=== PATIENT | female | born 1975 | race Caucasian/White ===

== ENCOUNTER 2017-06-22 14:13 | Outpatient (CLI) | payer OTHER ==
--- NOTE | 2017-06-22 15:21 | RAD ---
LEFT SHOULDER THREE VIEWS: History: Left shoulder pain. FINDINGS/IMPRESSION: No fracture, dislocation, or bony destruction identified. POS: DURAN
== END 2017-06-22 14:14 | disposition home or self-care (01) ==
LOC: RAD-FRANK 14:13
PROVIDERS: ATTEND Nurse Practitioner Family
DX: M25.512 Pain in left shoulder (principal)

== ENCOUNTER 2018-08-22 19:18 | Emergency (ER) | payer OTHER ==
[~2018-08-22 19:18] MED LIST: ISOVUE-370 76%-LOCM 1 ML ONE
[2018-08-22 20:28] LABS: Bilirubin Negative (Negative); Blood, Urine Negative (Negative); Clarity CLOUDY (Clear); Glucose, Urine (Dipstick) Negative (Negative); Leukocyte Negative (Negative); Nitrite Negative (Negative); Protein, Urine (Dipstick) Negative (Neg-Trace)
[2018-08-22 20:30] LABS: Pregnancy Test - Urine (BHCG) Negative (Negative); Pregu Control Background? CLEAR/WHITE (CLR/WHITE); Pregu Control Bar Appear? YES (CONTROL BAR); Specific Gravity 1.026 (1.002-1.036)
[2018-08-22] MEDS ORDERED: Morphine 4 MG/ML VIAL ONE (20:32)
--- NOTE | 2018-08-22 20:41 | RAD ---
EXAM: Single view of the chest HISTORY: Chest pain COMPARISON: None FINDINGS: Single view of the chest shows a normal sized cardiomediastinal silhouette. There is no greg dence of consolidation, mass, or pleural effusion. The bones are unremarkable. IMPRESSION: No evidence of acute cardiopulmonary disease
--- NOTE | 2018-08-22 21:06 | CT ---
CT Abdomen Pelvis W Con: 08/22/2018 12:00 AM CLINICAL INFORMATION: Left-sided abdominal pain for 3 days COMPARISON: None. TECHNIQUE: Multiple contiguous axial images were obtained and a CT of the abdomen and pelvis with IV contrast. C oronal reformats were performed. FINDINGS: Lower Chest: within normal limits. Abdomen: Liver: within normal limits. Bile Ducts: Normal caliber. Gallbladder: No calcified gallstones. Normal caliber wall. Pancreas: within normal limits. Spleen: within normal limits. Adrenals: within normal limits. Kidneys: within normal limits. Pelvis: Reproductive Organs: No pelvic masses. Ureters: within normal limits. Bladder: within normal limits. Peritoneum: No ascites or free air, no fluid collection. Bowel: Normal caliber. Normal appendix. Mesentery and Retroperitoneum: No enlarged mesenteric or retroperitoneal lymph nodes. Vessels: Normal. Abdominal Wall: within normal limits. Bones: Within normal limits IMPRESSION: No evidence of acute intraabdominal\pelvic abnormality.
[2018-08-22 21:14] LABS: #Eosinphils 0.1 thou/uL (0.0-0.7); #Lymphocytes 1.8 thou/uL (1.20-3.40); #Monocytes 0.5 thou/uL (0.11-0.59); #Neutrophils 5.1 thou/uL (1.40-6.50); %Basophils 0.3 % (0.0-1.0); %Eosinophils 1.3 % (0.0-10.0); %Lymphocytes 23.9 % (21.0-51.0); %Monocytes 6.6 % (0.0-10.0); %Neutrophils 67.9 % (42.0-75.0); Hemoglobin 14.1 g/dL (12.0-16.0); Mean Corpuscular Hemoglobin 30.2 pg (27.0-31.0); Mean Corpuscular Volume 88.8 fL (78.0-98.0); Mean Platelet Volume 8.3 fL (7.4-10.4); Platelet Count 214 thou/uL (130-400); RBC Distribution Width 12.9 % (11.5-14.5); Red Blood Cell (RBC) Count 4.66 mill/uL (4.20-5.40); White Blood Cell (WBC) Count 7.6 thou/uL (4.8-10.8)
[2018-08-22 21:34] LABS: ALT (SGPT) 23 U/L (8-55); AST (SGOT) 21 U/L (5-34); Albumin 4.3 g/dL (3.5-5.0); Alkaline Phosphatase 59 U/L (40-150); Anion Gap 15 mmol/L (10-20); BUN (Urea Nitrogen) 16 mg/dL (7.0-18.7); Bilirubin, Total 2.2 mg/dL (0.2-1.2); Calc. Creatinine Clearance 0 mL/min (70-130); Calcium 9.4 mg/dL (7.8-10.44); Carbon Dioxide 23 mmol/L (22-29); Chloride 102 mmol/L (98-107); Estimated GFR-MDRD 55; Globulin 3.3 g/dL (2.4-3.5); Glucose 91 mg/dL (70-105); Lipase 46 U/L (8-78); Potassium 3.5 mmol/L (3.5-5.1); Protein, Total 7.6 g/dL (6.0-8.3); Sodium 136 mmol/L (136-145)
[2018-08-22] MEDS ORDERED: Ketorolac Tromethamine 30 MG/ML VIAL ONE (21:43)
--- NOTE | 2018-08-22 22:53 | ULT ---
US Gallbladder RUQ: 08/22/2018 9:43 PM CLINICAL HISTORY: Abdominal pain and elevated bilirubin. STUDY: Limited right upper quadrant ultrasound of abdomen. COMPARISON: None. FINDINGS: Liver: Size: Normal. Echogenicity: Hyperechoic consistent with hepatic steatosis. Contour: Smooth. Mass: None. Bile ducts: No intrahepatic or extrahepatic biliary dilatation. Common bile duct measures 6 mm. Gallbladder: Normal. Pancreas: Head, body, and tail appear normal. Right kidney: No pelvicalyceal dilatation. Right kidney measuring 10.9 cm in length. IMPRESSION: Fatty liver
== END 2018-08-22 23:30 | disposition home or self-care (01) ==
LOC: ERS 19:18
DX: R10.12 Left upper quadrant pain (principal); R10.32 Left lower quadrant pain; I10 Essential (primary) hypertension; F32.9 Major depressive disorder, single episode, unspecified; Z79.899 Other long term (current) drug therapy
CPT/HCPCS: 71045; 74177; 76705; 80053; 81003; 81025; 83690; 84484; 85025; 96374; 96375; J1885; J2270; Q9966

== ENCOUNTER 2018-08-29 08:51 | Outpatient (CLI) | payer OTHER ==
--- NOTE | 2018-08-29 09:49 | ULT ---
Exam: Transabdominal pelvic ultrasound HISTORY: Left-sided abdominal pain. TECHNIQUE: Transabdominal imaging of the pelvis is performed. Ovaries are interrogated with grayscale , color flow, Doppler imaging and spectral waveform analysis FINDINGS: Uterus is identified measuring 9.6 x 4.8 x 6.0 cm. Heterogeneous myometrium. Limited evaluation of th e endometrium. Visualized endometrium appears to be 2 cm in thickness. Left ovary has a normal echotexture measuring 2.0 x 1.7 x 2.6 cm. Right ovary is normal echotexture measuring 1.5 x 2.0 x 3.0 cm There is no free fluid Ovarian Doppler: Vascular flow to the right and left ovary IMPRESSION: Heterogeneous uterine myometrium without discrete mass. Pelvic MRI may be beneficial to f urther interrogate the myometrium.
== END 2018-08-29 08:52 | disposition home or self-care (01) ==
LOC: SCSULT 08:51
PROVIDERS: ATTEND Nurse Practitioner Family
DX: R10.9 Unspecified abdominal pain (principal); R93.5 Abnormal findings on diagnostic imaging of other abdominal regions, including retroperitoneum
CPT/HCPCS: 76856; 93976

== ENCOUNTER 2018-09-01 17:41 | Emergency (ER) | payer OTHER ==
[2018-09-01 18:58] LABS: Bacteria/HPF None Seen HPF (None Seen); Bilirubin Negative (Negative); Blood, Urine 1+ (Negative); Calcium Oxalate Crystals Rare HPF (None Seen); Clarity Clear (Clear); Glucose, Urine (Dipstick) Normal (Negative); Leukocyte Negative Leu/uL (Negative); Nitrite Negative (Negative); Protein, Urine (Dipstick) Negative (Neg-Trace); RBC/HPF 0-3 HPF (0-3); Squamous Epithelial 0-3 HPF (0-3); Urobilinogen Normal mg/dL (Less than 2); WBC/HPF 0-3 HPF (0-3)
[2018-09-01] MEDS ORDERED: Ondansetron ODT 4 MG TAB ONE (19:13)
[2018-09-01] MEDS ORDERED: HYDROcodone/Acetaminophen 5/325 mg Tablet ONE (19:13)
== END 2018-09-01 19:20 | disposition home or self-care (01) ==
LOC: ERS 17:41
DX: R10.32 Left lower quadrant pain (principal); R11.0 Nausea; I10 Essential (primary) hypertension; F41.9 Anxiety disorder, unspecified; F32.9 Major depressive disorder, single episode, unspecified; Z79.899 Other long term (current) drug therapy
CPT/HCPCS: 81003; 81015; 99284; Q0162

== ENCOUNTER 2018-11-18 11:26 | Outpatient (CLI) | payer OTHER ==
--- NOTE | 2018-11-20 17:24 | EKG ---
Test Reason : Blood Pressure : / mmHG Vent. Rate : 081 BPM Atrial Rate : 081 BPM P-R Int : 138 ms QRS Dur : 080 ms QT Int : 388 ms P-R-T Axes : 051 030 046 degrees QTc Int : 450 ms Normal sinus rhythm Normal ECG No previous ECGs available Confirmed by JEN MCGUIRE (2) on 11/20/2018 5:23:54 PM Referred By: LUKE Confirmed By:JEN MCGUIRE
== END 2018-11-18 11:27 | disposition home or self-care (01) ==
LOC: LABBT 11:26
PROVIDERS: ATTEND Student in an Organized Health Care Education/Training Program
DX: Z01.818 Encounter for other preprocedural examination (principal); D21.9 Benign neoplasm of connective and other soft tissue, unspecified; R10.2 Pelvic and perineal pain
CPT/HCPCS: 93005; 93010

== ENCOUNTER 2018-11-21 05:52 | Day surgery (SDC) | payer OTHER ==
[2018-11-18 11:43] VITALS: BMI 32.4
[2018-11-18 12:35] LABS: Hemoglobin 14.3 g/dL (12.0-16.0); Mean Corpuscular HGB CONC 35.2 g/dL (32.0-36.0); Mean Corpuscular Hemoglobin 30.7 pg (27.0-31.0); Mean Corpuscular Volume 87.1 fL (78.0-98.0); Platelet Count 247 thou/uL (130-400); RBC Distribution Width 12.8 % (11.5-14.5); Red Blood Cell (RBC) Count 4.65 mill/uL (4.20-5.40); White Blood Cell (WBC) Count 5.5 thou/uL (4.8-10.8)
[2018-11-18 12:57] LABS: Anion Gap 13 mmol/L (10-20); BUN (Urea Nitrogen) 10 mg/dL (7.0-18.7); Calc. Creatinine Clearance 0 mL/min (70-130); Calcium 9.1 mg/dL (7.8-10.44); Carbon Dioxide 22 mmol/L (22-29); Chloride 104 mmol/L (98-107); Estimated GFR-MDRD 47; Glucose 131 mg/dL (70-105); Potassium 3.6 mmol/L (3.5-5.1); Sodium 135 mmol/L (136-145)
[2018-11-18 12:58] LABS: BHCG - Serum Negative (NEGATIVE); Pregs Control Background? CLEAR/WHITE (CLR/WHITE); Pregs Control Bar Appear? YES (CONTROL BAR)
[2018-11-21] MEDS ORDERED: Famotidine/PF 20 mg/2ml Vial ONE (06:24)
[2018-11-21] MEDS ORDERED: CeleCOXIB 100 MG CAP ONE (06:24)
[2018-11-21] MEDS ORDERED: Levofloxacin 500 mg/D5W 100 ml Premix Bag ONE (06:24)
[2018-11-21] MEDS ORDERED: Gabapentin 300 MG CAP ONE (06:24)
[2018-11-21] MEDS ORDERED: Clindamycin/D5W 900 mg/50 ml Premix Bag ONE (06:24)
[2018-11-21] MEDS ORDERED: Methylene Blue 50 MG/10 ML AMPUL ONE (06:35)
[2018-11-21] MEDS ORDERED: Bupivacaine HCl 0.5%/Epinephrine 1:200,000/PF 30 ml Vial ONE (06:35)
[2018-11-21] MEDS ORDERED: Midazolam HCl 2 mg/2 ml Vial ONE ×2 (06:48→06:49)
[2018-11-21] MEDS ORDERED: Fentanyl 250 MCG/5 ML VIAL ONE (06:48)
[2018-11-21] MEDS ORDERED: Ondansetron HCl/PF 4 MG/2 ML Vial IVP PRN (09:27)
[2018-11-21] MEDS ORDERED: Promethazine HCl 25 MG/ML VIAL SLOW IVP PRN (09:27)
[2018-11-21] MEDS ORDERED: Promethazine HCl 25 MG/ML VIAL IM PRN ×2 (09:27→09:40)
[2018-11-21] MEDS ORDERED: Morphine 4 MG/ML VIAL SLOW IVP PRN (09:40)
[2018-11-21] MEDS ORDERED: Ondansetron PF 4 MG/2 ML Vial IVP PRN (09:40)
[2018-11-21] MEDS ORDERED: diphenhydrAMINE 25 MG CAP PO PRN (09:40)
[2018-11-21] MEDS ORDERED: Bisacodyl 10 MG SUPP PR PRN (09:40)
[2018-11-21] MEDS ORDERED: Zolpidem Tartrate 5 MG TAB PO PRN (09:40)
[2018-11-21] MEDS ORDERED: HYDROcodone/Acetaminophen 5/325 mg Tablet PO PRN (09:40)
[2018-11-21] MEDS ORDERED: Fentanyl 100 MCG/2 ML VIAL ONE ×2 (10:47→11:24)
[2018-11-21] MEDS ORDERED: Ketorolac Tromethamine 30 MG/ML VIAL IVP SCH (12:00)
[2018-11-21] MEDS ORDERED: Lidocaine 1% PF 5 ML VIAL ONE (14:39)
[2018-11-21] MEDS ORDERED: Rocuronium Bromide 10 MG/ML (10ML VIAL) ONE (14:39)
[2018-11-21] MEDS ORDERED: Dexamethasone 20 MG/5 ML VIAL ONE (14:39)
[2018-11-21] MEDS ORDERED: Ketorolac Tromethamine 30 MG/ML VIAL ONE (14:39)
[2018-11-21] MEDS ORDERED: ePHEDrine 50 MG/ML VIAL ONE (14:39)
[2018-11-21] MEDS ORDERED: Ondansetron PF 4 MG/2 ML Vial ONE (14:39)
[2018-11-21] MEDS ORDERED: PROPOFOL 200 MG/20 ML VIAL ONE (14:39)
[2018-11-21] MEDS ORDERED: Glycopyrrolate 0.2 MG/ML 5 ML SYRINGE ONE (14:39)
[2018-11-21] MEDS ORDERED: diphenhydrAMINE 50 MG/ML VIAL ONE (14:39)
[2018-11-21] MEDS: Ketorolac Tromethamine 30 MG/ML VIAL IVP SCH ×2 (15:43→22:16)
[2018-11-21] MEDS: Simethicone Chewable 80 MG TAB PO PRN (19:12)
[2018-11-21] MEDS: HYDROcodone/Acetaminophen 5/325 mg Tablet PO PRN (19:12)
[2018-11-21] MEDS: Sodium Chloride 0.9% 1,000 ML IV SCH (19:13)
[2018-11-22] MEDS: Sodium Chloride 0.9% 1,000 ML IV SCH ×2 (03:22→12:39)
[2018-11-22] MEDS: Ketorolac Tromethamine 30 MG/ML VIAL IVP SCH ×2 (04:00→12:38)
[2018-11-22] MEDS ORDERED: Ibuprofen 800 MG TAB PO SCH (06:00)
[2018-11-22] MEDS: Ibuprofen 600 MG TAB PO SCH ×2 (06:27→14:11)
[2018-11-22 06:56] LABS: Hemoglobin 11.8 g/dL (12.0-16.0); Mean Corpuscular HGB CONC 34.6 g/dL (32.0-36.0); Mean Corpuscular Hemoglobin 30.4 pg (27.0-31.0); Mean Corpuscular Volume 87.9 fL (78.0-98.0); Mean Platelet Volume 8.1 fL (7.4-10.4); Platelet Count 200 thou/uL (130-400); RBC Distribution Width 12.8 % (11.5-14.5); Red Blood Cell (RBC) Count 3.89 mill/uL (4.20-5.40); White Blood Cell (WBC) Count 7.7 thou/uL (4.8-10.8)
[2018-11-22 07:16] LABS: Anion Gap 10 mmol/L (10-20); BUN (Urea Nitrogen) 11 mg/dL (7.0-18.7); Calc. Creatinine Clearance 79 mL/min (70-130); Calcium 8.3 mg/dL (7.8-10.44); Carbon Dioxide 22 mmol/L (22-29); Chloride 107 mmol/L (98-107); Estimated GFR-MDRD 49; Glucose 116 mg/dL (70-105); Potassium 4.2 mmol/L (3.5-5.1); Sodium 135 mmol/L (136-145)
[2018-11-22] MEDS ORDERED: FLUoxetine HCl 20 MG CAP PO SCH (09:00)
[2018-11-22] MEDS ORDERED: Loratadine 10 MG TAB PO SCH (09:00)
[2018-11-22] MEDS ORDERED: Lisinopril 20 MG TAB PO SCH (09:00)
[2018-11-22] MEDS: Simethicone Chewable 80 MG TAB PO PRN (09:24)
[2018-11-22] MEDS: HYDROcodone/Acetaminophen 5/325 mg Tablet PO PRN ×2 (09:25→14:11)
--- NOTE | 2018-11-22 10:11 | PDOC.EVN ---
Event Note - Event Note Event Note: Pt seen and evaluated POD1 s/p ERIKLH BS with bladder serosa repair. PT is doing well this am. Pain is controlled. She denies any vaginal bleeding. She is eating and drinking well. She has no leg pain or swelling. Her Richards was just removed. She is about to start ambulating and attempt to void. She has no leg pain or swelling. NO incisional pain or concerns. PT VSS, afebrile. PT is resting comfortable in bed. Normal respiratory effort. Abdomen is soft, without distention. Incisions are intact. LE have SCDs in place. She has no pain or swelling noted. She is neurologically intact. H/H stable at 11.8/34.2 and creatinine improved at 1.21. Pathology is pending at this time. PT s/p RATLH BS c bladder serosa repair. Pt is doing well and pain controlled. Pt will ambulate with plan to d/c as soon as she is able to void. She will follow up in the office in 2 week. Prescriptions have already been sent to pharmacy. Discharge planning and instructions discussed with patient. Hx of HTN- her BP is well controlled at this time and she will resume home meds.
[2018-11-22 11:21] VITALS: BP 113/62; TEMP 98.2
--- NOTE | 2018-11-23 12:08 | OP ---
DATE OF PROCEDURE: 11/21/2018 PREOPERATIVE DIAGNOSES: 1. Fibroids. 2. Pelvic pain. POSTOPERATIVE DIAGNOSES: 1. Fibroids. 2. Pelvic pain. PROCEDURES PERFORMED: Robotic assisted total laparoscopic hysterectomy, bilateral salpingectomy, repair of bladder serosal defect. ANESTHESIA: General endotracheal. BAND SAWYER SURGEON: Priscilla Myers. ESTIMATED BLOOD LOSS: 50 mL. IVF: 1500 mL crystalloid. URINE OUTPUT: 100 mL concentrated urine. COMPLICATIONS: None. DRAINS: Richards catheter. PATHOLOGY: Uterus, cervix, bilateral fallopian tubes. FINDINGS: On exam under anesthesia, an 11 week size uterus, mobile was present, sounded to 11 cm. The cervix is normal-appearing on intraabdominal survey. The uterus was globally enlarged and boggy consistent with adenomyosis. The ovaries were normal bilaterally. There was a small follicular cyst on the right ovary with clear fluid. The fallopian tubes had prior tubal ligation and were within normal limits. Ureters were visible transperitoneally throughout the case and there were dense adhesions of the bladder to the lower uterine segment from the patient's previous and there was no inadvertent bladder injury on back filling of the bladder. There was a small serosal defect in the dome of the bladder that was repaired with a single layer of Vicryl. OPERATIVE TECHNIQUE: The patient was taken to the operating room, where general anesthesia was obtained without difficulty. The patient was prepped and draped in a sterile fashion in a dorsal lithotomy position. A Richards catheter was placed in the bladder. A speculum was placed in the vagina. The anterior lip of the cervix was grasped with a single-tooth tenaculum and the uterus then sounded to 11 cm. The ALANIS manipulator was assembled with a 10 cm tip and a 4 cm colpotomizer ring. The cervix was dilated and the ALANIS was inserted into the uterus. The instruments were removed. Balloons were inflated. Legs were placed in low lithotomy. Attention was turned to the abdomen. The superior aspect of the umbilicus was infiltrated with 0.5% Marcaine with epinephrine. A vertical 12 mm skin incision was made and the Veress needle was passed to the abdomen, noting an opening pressure of 0 mmHg. Pneumoperitoneum was obtained. The Veress needle was removed. The 12 mm trocar was advanced into the abdomen and confirmed placement with robotic camera. The steep Trendelenburg was obtained. The right and left lower quadrant 8 mm robotic trocars were placed under direct visualization after infiltrating with anesthetic and making a horizontal skin incision. A right upper quadrant 11 mm optometric assistant port was also placed under direct visualization after infiltrating with anesthetic and making a skin incision. The robot was then docked. The right robotic arm contained monopolar scissors and left robotic arm contained a fenestrated bipolar. The surgeon console took control. The left fallopian tube was grasped and elevated and the mesosalpinx was cauterized with the bipolar and incised with the scissors. Once the fallopian tube was transected, this was removed out of the abdomen. The utero-ovarian ligament was cauterized multiple times with the bipolar and transected and the mesovarium was incised down to the round ligament that was cauterized and transected in the midportion. The posterior leaf of the broad ligament was dropped down to the level of the uterosacral. The retroperitoneum was dissected off the uterine pedicle and the ureter was noted at that time. The anterior leaf of broad ligament was dropped down to the level of the bladder flap. Clear peritoneal windows were incised. However, the bladder was densely adherent to the lower uterine segment above the colpotomizer ring. The right fallopian tube was then grasped and elevated and the mesosalpinx was cauterized and incised and the fallopian tube was removed out of the abdomen. The utero-ovarian was cauterized with the bipolar and incised with the scissors and taken down to the round ligament that was cauterized in the midportion and incised with the scissors. The posterior leaf of the broad ligament was dropped down to the level of the uterosacral and skeletonization of the vascular uterine pedicle was performed. The anterior leaf of the broad ligament was also incised ensuring a clear window by tenting with the fenestrated. The bladder was attempted to be dissected off the lower segment with a pushing and spreading technique with the fenestrated. This did allow some of the bladder to come down off the lower segment. Then, the bladder was approached laterally to find a window along the cervix where the cervix was free of adhesion and this was successful on the first side and able to allow additional lateral bladder adhesion to be freed up layering out very carefully ensuring no bladder mucosa and clear windows and then incising. During this portion, irrigation was being performed and suction to allow for visualization as the adhesions were oozy. Back filling of the bladder was performed to note the limitations of the bladder that appeared to be close to the lower segment. The left bladder was also approached laterally and the window was identified, which allowed freeing up of the lateral bladder adhesions by layering it out and the bladder was backfilled again once the bladder had been freed up a little bit more and it was noted that the majority of what remained attached to the uterus was scar. This was incised with the scissors on cautery. Once the bladder had been completely freed out, the pubocervical fascia was scored and the adventitia was dissected down below the level of the colpotomizer ring. The bladder was backfilled once again and at that time, it was noted to possibly have about 1.5 cm defect in the serosa of the bladder. However, there was no extravasation of saline and therefore, no bladder mucosal injury. The uterine vessels were cauterized multiple times bilaterally and incised. The colpotomy was performed and the uterus was then placed into the vagina. The vaginal cuff was irrigated and cauterized achieving hemostasis and the ureters were again noted bilaterally through the peritoneum vermiculating. The scissors were traded out for the needle route delivery service driver and the vaginal cuff was closed with Stratafix 2-0 barbed suture in a running fashion and run back for a second layer with excellent reapproximation. A 3-0 Vicryl was then passed into the abdomen and this was used to close the serosal defect in a running fashion. The needle was removed out of the abdomen. Irrigation was again performed of the pelvis copiously. Low pressure check was performed. Hemostasis was noted. Back filling of the bladder one additional time revealed no other defects or extravasation of saline. All instruments were removed out of the abdomen. Pneumoperitoneum was released. The robot was undocked. The fascia of the camera port was closed with 0 Vicryl in a [id number] fashion. The skin was closed with 4-0 Monocryl in subcuticular fashion. Dermabond was applied. All instruments removed out of the vagina. The vaginal cuff was checked and noted to be hemostatic with excellent closure. The patient tolerated the procedure well. Sponge, lap, needle counts correct x2. The patient was taken to recovery room in stable condition. The patient received Levaquin and clindamycin for preoperative prophylaxis. Job ID: [id number]
== END 2018-11-22 14:35 | disposition home or self-care (01) ==
LOC: SDC 05:52 → 3SE 12:04 → SDC 11-22 14:35
PROVIDERS: ATTEND Student in an Organized Health Care Education/Training Program
PROC: 0UT74ZZ Resection of Bilateral Fallopian Tubes, Percutaneous Endoscopic Approach (ICD-10-PCS; principal; 2018-11-21)
PROC: 0TQB4ZZ Repair Bladder, Percutaneous Endoscopic Approach (ICD-10-PCS; principal; 2018-11-21)
PROC: 8E0W4CZ Robotic Assisted Procedure of Trunk Region, Percutaneous Endoscopic Approach (ICD-10-PCS; principal; 2018-11-21)
PROC: 0UT94ZZ Resection of Uterus, Percutaneous Endoscopic Approach (ICD-10-PCS; principal; 2018-11-21)
DX: D25.2 Subserosal leiomyoma of uterus (principal); N72 Inflammatory disease of cervix uteri; N80.0 Endometriosis of uterus; N83.01 Follicular cyst of right ovary; N32.89 Other specified disorders of bladder; I10 Essential (primary) hypertension; Z88.0 Allergy status to penicillin; Z88.8 Allergy status to other drugs, medicaments and biological substances; Z98.51 Tubal ligation status
CPT/HCPCS: 36415; 80048; 84703; 85027; 86850; 86900; 86901; 88307; J0670; J1100; J1200; J1885; J1956; J2001; J2250; J2270; J2405; J2704; J3010; J3490; Q9968; S0028

== ENCOUNTER 2020-07-25 22:21 | Emergency (ER) | payer OTHER ==
[2020-07-25] MEDS ORDERED: HYDROcodone/Acetaminophen 10/325 mg Tablet ONE (22:55)
[2020-07-25] MEDS ORDERED: Boostrix 0.5 ML (Tdap) VIAL ONE (22:55)
== END 2020-07-25 23:22 | disposition home or self-care (01) ==
LOC: ERS 22:21
DX: S93.602A Unspecified sprain of left foot, initial encounter (principal); S90.411A Abrasion, right great toe, initial encounter; I10 Essential (primary) hypertension; Z79.899 Other long term (current) drug therapy; W01.0XXA Fall on same level from slipping, tripping and stumbling without subsequent striking against object, initial encounter
CPT/HCPCS: 90471; 90715

== ENCOUNTER 2020-08-08 09:57 | Outpatient (CLI) | payer OTHER | END 2020-08-08 09:58 | disposition home or self-care (01) | LOC: RAD-FRANK 09:57 | PROVIDERS: ATTEND Nurse Practitioner Family | DX: M79.672 Pain in left foot (principal) ==

== ENCOUNTER 2020-09-24 07:28 | Outpatient (CLI) | payer OTHER | END 2020-09-24 07:29 | disposition home or self-care (01) | LOC: BICMRI 07:28 | PROVIDERS: ATTEND Orthopaedic Surgery | DX: M79.672 Pain in left foot (principal); S92.215A Nondisplaced fracture of cuboid bone of left foot, initial encounter for closed fracture; R60.0 Localized edema ==